=== PATIENT | male | born 1980 | race African-American/Black ===

== ENCOUNTER 2025-07-11 19:17 | Inpatient (IN) ==
[~2025-07-11] VITALS: Ht 193 cm; Wt 101.7 kg
[~2025-07-11 19:17] MED LIST: AMLO10TA80 PO; ASPI-1160 PO
[2025-07-11 20:04] LABS: BG DEOXYHEMOGLOBIN 65.6 % (0.0-5.0)
[2025-07-11] MEDS: FUROSEMIDE 40MG/4ML VIAL IV ONE (20:06)
[2025-07-11] MEDS: METHYLPREDNISOLONE SOD SUCC 125MG/2ML (ACT-O-VIAL) IV ONE (20:07)
[2025-07-11 20:23] LABS: BASOPHILS % 1.0 % (0.0-2.0); EOSINOPHILS % 5.1 % (0.0-5.0); HEMATOCRIT. 31.5 % (42.0-52.0); HEMOGLOBIN. 9.7 g/dL (14.0-18.0); LYMPHOCYTES % 41.1 % (20.0-50.0); MEAN PLATELET VOLUME 8.9 fl (7.4-10.4); MONOCYTES % 3.4 % (2.0-8.0); NEUTROPHILS % 49.4 % (40.0-76.0); PLATELET 285 x1000/uL (130-400); RED BLOOD CELL COUNT 3.61 mill/uL (4.7-6.1); RED CELL DISTRIBUTION WIDTH 19.5 % (11.6-14.6)
[2025-07-11 20:25] VITALS: PULSE 112; RESP 20; O2SAT 96
[2025-07-11] MEDS: ALBUTEROL (0.083%) 2.5MG/3ML NEB HHN SCH (20:29)
[2025-07-11] MEDS: IPRATROPIUM BROMIDE (0.02%) 0.5MG/2.5ML NEB HHN SCH (20:29)
[2025-07-11 20:37] LABS: CREATININE 1.1 mg/dL (0.6-1.3); UREA NITROGEN BLOOD 7 mg/dL (9-23)
[2025-07-11 20:39] LABS: TROPONIN I HIGH SENSITIVITY 23 ng/L (3.0-53)
[2025-07-11] MEDS ORDERED: ONDANSETRON HCL 4MG/2ML INJ IV PRN (23:15)
[2025-07-11] MEDS ORDERED: DOCUSATE SODIUM 100MG CAPSULE PO PRN (23:15)
[2025-07-11] MEDS ORDERED: LORAZEPAM 0.5MG TABLET PO PRN (23:15)
[2025-07-11] MEDS ORDERED: ACETAMINOPHEN 325MG TABLET PO PRN (23:15)
[2025-07-11] MEDS ORDERED: IPRATROPIUM/ALBUTEROL 0.5-3(2.5)MG/3ML NEB HHN PRN (23:15)
[2025-07-11] MEDS ORDERED: GUAIFENESIN 200MG/10ML SUGAR FREE UDC PO PRN (23:15)
[2025-07-11 23:57] VITALS: BP 109/54; PULSE 131; RESP 22; TEMP 36.3068
[2025-07-12 03:33] LABS: CLARITY URINE CLEAR (CLEAR); COLOR URINE YELLOW (YELLOW); GLUCOSE URINE NEGATIVE (NEGATIVE); KETONES URINE NEGATIVE (NEGATIVE); LEUKOCYTE ESTERASE URINE NEGATIVE (NEGATIVE); NITRITE URINE NEGATIVE (NEGATIVE); OCCULT BLOOD URINE NEGATIVE (NEGATIVE); PH URINE 6.0 (4.5-8.0); PROTEIN URINE 2+ (NEGATIVE); SPECIFIC GRAVITY URINE 1.009 (1.005-1.030); UROBILINOGEN URINE 1.0 E.U./dL (0.2-1.0)
[2025-07-12 03:38] LABS: RBC URINE NONE SEEN /hpf (0-2); WBC URINE 0-2 /hpf (0-2)
[2025-07-12 03:39] LABS: BACTERIA URINE RARE; SQUAMOUS EPITHELIAL CELL URINE FEW /lpf (RARE/1+)
[2025-07-12 03:47] LABS: *AMPHETAMINES SCREEN URINE NEGATIVE (NEGATIVE); *BARBITURATES SCREEN URINE NEGATIVE (NEGATIVE); *BENZODIAZEPINES SCREEN URINE NEGATIVE (NEGATIVE); *COCAINE SCREEN URINE NEGATIVE (NEGATIVE); METHADONE URINE SCREEN NEGATIVE (NEGATIVE); OPIATES URINE SCREEN NEGATIVE (NEGATIVE)
[2025-07-12 03:48] LABS: CANNABINOID URINE SCREEN NEGATIVE (NEGATIVE); ECSTASY MDMA SCREEN URINE NEGATIVE (NEGATIVE); PHENCYCLIDINE URINE SCREEN PRESUMTIVE POSITIVE (NEGATIVE)
[2025-07-12 07:33] LABS: CREATININE 1.1 mg/dL (0.6-1.3)
[2025-07-12 07:34] LABS: LDL CHOLESTEROL 54 mg/dL (5-100); PROTEIN TOTAL 8.6 g/dL (6.0-8.3); TRIGLYCERIDE 52 mg/dL (0-150); UREA NITROGEN BLOOD 10 mg/dL (9-23)
[2025-07-12 07:35] LABS: ASPARTATE AMINOTRANSFERASE 22 IU/L (<34); BILIRUBIN DIRECT 0.2 mg/dL (<=3.0)
[2025-07-12 07:36] LABS: BILIRUBIN TOTAL 0.4 mg/dL (0.1-1.0)
[2025-07-12 07:37] LABS: BASOPHILS % 0.4 % (0.0-2.0); EOSINOPHILS % 0.1 % (0.0-5.0); HEMATOCRIT. 30.0 % (42.0-52.0); HEMOGLOBIN. 9.7 g/dL (14.0-18.0); LYMPHOCYTES % 24.6 % (20.0-50.0); MEAN PLATELET VOLUME 9.0 fl (7.4-10.4); MONOCYTES % 1.4 % (2.0-8.0); NEUTROPHILS % 73.5 % (40.0-76.0); PLATELET 279 x1000/uL (130-400); RED BLOOD CELL COUNT 3.51 mill/uL (4.7-6.1); RED CELL DISTRIBUTION WIDTH 18.8 % (11.6-14.6); T4 FREE 1.09 ng/dL (0.89-1.76)
[2025-07-12 07:38] LABS: FOLIC ACID (FOLATE) SERUM 10.98 ng/mL (>5.38); VITAMIN B12 SERUM 772 pg/mL (211-911)
[2025-07-12 08:00] VITALS: BP 144/104; PULSE 104; RESP 17; TEMP 36.4; O2SAT 96
[2025-07-12] MEDS: FUROSEMIDE 40MG/4ML VIAL IVP SCH (09:57)
[2025-07-12] MEDS: FERROUS SULFATE 300MG/5ML UDC PO SCH (10:01)
[2025-07-12] MEDS: ASPIRIN 81MG TABLET PO SCH (10:01)
[2025-07-12] MEDS: EMPAGLIFLOZIN 10MG TABLET PO SCH (10:01)
[2025-07-12] MEDS: SULFAMETHOXAZOLE/TRIMETHOPRIM 800/160MG TABLET PO SCH (10:02)
[2025-07-12] MEDS: LISINOPRIL 5MG TABLET PO SCH (10:04)
[2025-07-12] MEDS: AMLODIPINE 10MG TABLET PO SCH (10:04)
[2025-07-12 12:00] VITALS: BP 152/102; PULSE 109; RESP 15; TEMP 36.4; O2SAT 97
[2025-07-12] MEDS: BICTEGRAVIR 50MG/EMTRICITABINE 200MG/TENOFOVIR ALA 25MG PO SCH (13:02)
[2025-07-12 16:00] VITALS: BP 162/98; PULSE 101; RESP 15; TEMP 36.4; O2SAT 96
[2025-07-12] MEDS: ACETAMINOPHEN 325MG TABLET PO PRN (17:50)
[2025-07-12] MEDS: FUROSEMIDE 20MG/2ML VIAL IVP SCH (18:18)
[2025-07-12 20:00] VITALS: BP 145/102; PULSE 113; RESP 22; TEMP 36.4; O2SAT 94
[2025-07-12] MEDS: CARVEDILOL 3.125 MG TABLET PO SCH (21:00)
[2025-07-12] MEDS: ATORVASTATIN CALCIUM 40MG TABLET PO SCH (21:00)
[2025-07-12 21:05] LABS: TROPONIN I HIGH SENSITIVITY 27 ng/L (3.0-53)
[2025-07-13] VITALS: BP 137/100; PULSE 111; RESP 20; TEMP 36.2; O2SAT 97
[2025-07-13] MEDS: CLONIDINE 0.1MG TABLET PO PRN (03:00)
[2025-07-13 04:00] VITALS: BP 127/72; PULSE 66; RESP 20; TEMP 37.1; O2SAT 97
[2025-07-13 08:00] VITALS: BP 131/97; PULSE 115; RESP 16; TEMP 36.3; O2SAT 96
[2025-07-13 09:07] LABS: % CD 3 POS. LYMPHOCYTES 88.5 % (57.5-86.2); % CD 4 POS. LYMPHOCYTES 5.8 % (30.8-58.5); % CD 8 POS. LYMPH 81.7 % (12.0-35.5); ABSOLUTE BASOPHILS 0.0 x10E3/uL (0.0-0.2); ABSOLUTE CD 3 974 /uL (622-2402); ABSOLUTE CD 4 HELPER 64 /uL (359-1519); ABSOLUTE CD 8 SUPPRESSOR 899 /uL (109-897); ABSOLUTE EOSINOPHILS 0.0 x10E3/uL (0.0-0.4); ABSOLUTE LYMPHOCYTES 1.1 x10E3/uL (0.7-3.1); ABSOLUTE MONOCYTES 0.1 x10E3/uL (0.1-0.9); ABSOLUTE NEUTROPHILS 3.0 x10E3/uL (1.4-7.0); BASOPHILS 0 % (Not Estab.); EOSINOPHILS 0 % (Not Estab.); HEMATOLOGY COMMENT Note: (.); IMMATURE GRANULOCYTES 0 % (Not Estab.); IMMATURE GRANULOCYTES ABSOLUTE 0.0 x10E3/uL (0.0-0.1); LYMPHOCYTES 26 % (Not Estab.); MEAN CORPUSCULAR HGB CONC. 31.6 g/dL (31.5-35.7); MONOCYTES 2 % (Not Estab.); NEUTROPHILS 72 % (Not Estab.); PLATELETS 322 x10E3/uL (150-450); RBC 3.62 x10E6/uL (4.14-5.80); RED CELL DISTRIBUTION WIDTH 16.0 % (11.6-15.4); WBC 4.1 x10E3/uL (3.4-10.8)
[2025-07-13] MEDS: FUROSEMIDE 40MG/4ML VIAL IVP SCH (09:43)
[2025-07-13] MEDS: SPIRONOLACTONE 25MG TABLET PO SCH (09:44)
[2025-07-13] MEDS: PANTOPRAZOLE SODIUM 40 MG/VIAL IV SCH (09:45)
[2025-07-13 12:00] VITALS: BP 135/90; PULSE 93; RESP 16; TEMP 35.9; O2SAT 96
[2025-07-13] MEDS ORDERED: LIP40 PO (12:23)
[2025-07-13] MEDS ORDERED: ASPI-1160 PO (12:23)
[2025-07-13] MEDS ORDERED: EMPA10TA PO (12:23)
[2025-07-13] MEDS ORDERED: LOSA50TA41 MT (12:23)
[2025-07-13] MEDS ORDERED: COR6 PO (12:23)
[2025-07-13] MEDS ORDERED: SULF1TAB44 PO (12:23)
[2025-07-13] MEDS ORDERED: SPIR25TA PO (12:23)
[2025-07-13] MEDS ORDERED: FURO40TA5 MT (12:23)
[2025-07-13 16:00] VITALS: BP 115/81; PULSE 86; RESP 16; TEMP 36; O2SAT 96
[2025-07-13 20:00] VITALS: BP 114/79; PULSE 84; RESP 18; TEMP 36.9; O2SAT 100
[2025-07-13] MEDS: CARVEDILOL 6.25 MG TABLET PO SCH (20:15)
[2025-07-14] VITALS: BP 116/74; PULSE 89; RESP 18; TEMP 36.6; O2SAT 99
[2025-07-14 04:00] VITALS: BP 107/70; PULSE 86; RESP 18; TEMP 36.6; O2SAT 98
[2025-07-14 08:00] VITALS: BP 118/82; PULSE 94; RESP 17; TEMP 36.1; O2SAT 96
[2025-07-14] MEDS: SULFAMETHOXAZOLE/TRIMETHOPRIM 800/160MG TABLET PO SCH (09:28)
[2025-07-14 12:00] VITALS: BP 103/66; PULSE 60; RESP 19; TEMP 36.1; O2SAT 100
[2025-07-14] MEDS: ENOXAPARIN 100MG/ML SYR SUBCUT SCH (14:51)
[2025-07-14 16:00] VITALS: BP 92/64; PULSE 102; RESP 17; TEMP 36.3; O2SAT 93
[2025-07-14] MEDS: FUROSEMIDE 100MG/10ML VIAL IVP SCH (18:26)
[2025-07-14 20:00] VITALS: BP 119/71; PULSE 89; RESP 16; TEMP 36; O2SAT 94
[2025-07-14 21:10] LABS: INR 1.2
[2025-07-14] MEDS ORDERED: IOHEXOL-350 100 ML BOTTLE ONE (23:22)
[2025-07-15] VITALS: BP 93/60; PULSE 89; RESP 20; TEMP 36.3; O2SAT 93
[2025-07-15 04:00] VITALS: BP 111/69; PULSE 88; RESP 18; TEMP 36.2; O2SAT 94
[2025-07-15] MEDS ORDERED: ENOXAPARIN 100MG/ML SYR SUBCUT SCH (04:00)
[2025-07-15 08:00] VITALS: BP 103/60; PULSE 93; RESP 18; TEMP 36.3; O2SAT 93
[2025-07-15 12:00] VITALS: BP 98/68; PULSE 113; RESP 18; RESP 20; TEMP 36.6; O2SAT 95; O2SAT 96
[2025-07-15] MEDS ORDERED: APIX5TAB PO (15:27)
[2025-07-15 16:22] VITALS: BP 106/76; PULSE 99; RESP 18; TEMP 97.8
== END 2025-07-15 17:00 | disposition home or self-care (01) | DRG 194 ==
LOC: ER 19:17 → EDBEDREQTM 20:47 → EDBEDREQ 20:47 → ENRESERV 21:47 → CANRESERV 21:47 → ENRESERV 21:58 → 6WST 22:28
PROVIDERS: ADMIT Internal Medicine; ATTEND Internal Medicine
DX: I13.0 Hypertensive heart and chronic kidney disease with heart failure and stage 1 through stage 4 chronic kidney disease, or unspecified chronic kidney disease (principal); B20 Human immunodeficiency virus [HIV] disease; D63.8 Anemia in other chronic diseases classified elsewhere; Z59.00 Homelessness unspecified; D50.9 Iron deficiency anemia, unspecified; E11.22 Type 2 diabetes mellitus with diabetic chronic kidney disease; I50.23 Acute on chronic systolic (congestive) heart failure; N18.9 Chronic kidney disease, unspecified; J45.909 Unspecified asthma, uncomplicated; F19.10 Other psychoactive substance abuse, uncomplicated; F17.210 Nicotine dependence, cigarettes, uncomplicated; M79.89 Other specified soft tissue disorders; Z88.0 Allergy status to penicillin; Z91.199 Patient's noncompliance with other medical treatment and regimen due to unspecified reason; Z88.8 Allergy status to other drugs, medicaments and biological substances; Z79.82 Long term (current) use of aspirin; Z79.899 Other long term (current) drug therapy
CPT/HCPCS: 36415; 71045; 71275; 80048; 80061; 80076; 80305; 81003; 82375; 82607; 82746; 82803; 83540; 83550; 83880; 84439; 84443; 84484; 85025; 86359; 86360; 93005; 93306; 93970; 94070; 94640; 96374; 96375; 99285; A4606; J1650; J1938; J2470; J2919; Q9967